=== PATIENT | female | born 1960 | race Caucasian/White ===

== ENCOUNTER → 2019-11-19 10:11 | Outpatient (BNVA) | payer MEDICARE, MEDICAID, SELFPAY | PROVIDERS: Family Provider Family Medicine; PCP Family Medicine; Visit Provider Specialist | DX: G40.219 Localization-related (focal) (partial) symptomatic epilepsy and epileptic syndromes with complex partial seizures, intractable, without status epilepticus (principal); G43.019 Migraine without aura, intractable, without status migrainosus | CPT/HCPCS: 95970; 99214 ==

== ENCOUNTER → 2021-08-03 12:53 | Outpatient (BNVA) | payer MEDICARE, MEDICAID, SELFPAY | PROVIDERS: Family Provider Family Medicine; PCP Family Medicine; Visit Provider Specialist | DX: G40.219 Localization-related (focal) (partial) symptomatic epilepsy and epileptic syndromes with complex partial seizures, intractable, without status epilepticus (principal); G43.711 Chronic migraine without aura, intractable, with status migrainosus; Z96.82 Presence of neurostimulator | CPT/HCPCS: 99214; 99215 ==

== ENCOUNTER → 2021-09-29 09:05 | Outpatient (BNVA) | payer MEDICARE, MEDICAID, SELFPAY | PROVIDERS: Family Provider Family Medicine; PCP Internal Medicine Infectious Disease; Visit Provider Thoracic Surgery (Cardiothoracic Vascular Surgery) | DX: Z96.89 Presence of other specified functional implants (principal) | CPT/HCPCS: 87635 ==

== ENCOUNTER 2021-10-05 07:01 | Day surgery (SDC) | payer MEDICARE, MEDICAID, SELFPAY ==
[2021-09-29 11:39] VITALS: BMI 36.6
[2021-09-29 12:37] LABS: Basophils % 0.6 %; Eosinophils # 0.2 10^3/uL (0.0-0.8); Eosinophils % 3.1 %; Hematocrit 43.3 % (37.0-47.0); Hemoglobin 13.4 g/dL (11.5-15.3); Lymphocytes # 1.5 10^3/uL (0.8-4.8); Lymphocytes % 22.8 %; Mean Corpuscular HGB Conc 30.9 g/dL (30.0-36.0); Mean Corpuscular Hemoglobin 30.2 pg (28.0-34.0); Mean Corpuscular Volume 97.5 fl (81-99); Mean Platelet Volume 11.5 fL (7.4-10.4); Monocytes # 0.3 10^3/uL (0.2-0.9); Monocytes % 4.7 %; Neutrophils # 4.48 10^3/uL (1.8-7.7); Neutrophils % 68.5 %; Nucleated Red Blood Cells % 0 %; Platelet Count 285 10^3/cmm (130-400); Red Blood Count 4.44 10^6/uL (4.1-5.3); Red Cell Distribution Width 12.7 % (12.1-15.1); White Blood Count 6.5 10^3/uL (4.0-10.0)
[2021-09-29 12:53] LABS: Urine Appearance SL Hazy (CLEAR); Urine Color Yellow (Yellow); pH Urine 5 (5-7)
[2021-09-29 12:54] LABS: Add Urine Culture? Yes; Add Urine Microscopic? YES; Bacteria Urine 2+ /hpf; Bilirubin Urine Neg (Negative); Blood Urine 2+ (Negative); Glucose Urine UA Norm (Normal); Ketones Urine Negative (Negative); Leukocyte Esterase Urine Negative (Negative); Nitrate Urine Negative (Negative); Protein Urine Neg (Negative); Squamous Epithelial Cell Urine 0-4 /hpf (0-5); Urobilinogen Urine Norm (Negative); WBC Urine 0-4 /hpf (0-5)
[2021-09-29 12:58] LABS: Anion Gap 14.6 (5-19); Blood Urea Nitrogen 13 mg/dL (6-20); Calcium 7.6 mg/dL (8.5-10.5); Carbon Dioxide 22 mmol/L (22-29); Chloride 107 mmol/L (98-107); Glomerular Filtration Rate 85.9 mL/min (90-130); Glucose 89 mg/dL (65-115); Osmolality Calculated 290 mOsm/kg (285-295); Potassium 3.6 mmol/L (3.5-5.1); Sodium 140 mmol/L (136-145)
--- NOTE | 2021-09-29 16:34 | P.ANESASSM_ITS ---
Pre-Anesthetic Assessment Pre-Anesthetic Assessment: Height/Weight: Height 1.57 m Weight 90.718 kg Preop Diagnosis: Vagal nerve stimulator Generator generator end of service Proposed Procedure: Operation Date: 10/05/21 08:40 Proposed Procedures p VNS Generator Exchange(Not Applicable) - Jarrod Pascual MD Was Beta Ru taken within 24 hours: N/A Was Clonidine taken within 24 hours: N/A Social: Social History: No alcohol and No tobacco Exam: Pre-Anes Outpt Exam: alert, oriented x 3, clear to auscultation bilaterally and regular rate & rhythm Airway: Submandibular: WNL Cervical ROM: WNL MP: 2 Dentition: False History/ROS: No significant complaints Pulmonary: Pulmonary: None reported CV/HEM: CV/HEM: None reported : : None reported Hepatic: Hepatic: None reported GI: GI: GERD Metabolic: Metabolic: None reported Musc/skel: Musc/skel: None reported Neuropsych: Neuropsych: Anxiety and Seizure (VNS for epilepsy ) Comments: Migraine Anesthetic Plan: ASA status: 3 (60 year old with intractable epilepsy ) Anesthesia: General and MAC Other: We discussed risk and benefits of both MAC and general anesthesia. We discussed that further planning will coordinated with surgeon on day of surgery. We discussed the spectrum of MAC anesthesia and that it is possible that with MAC the patient would recall intraoperative stimuli including pain/discomfort. Patient consents to both MAC and general pending day of surgery discussion. Risk of > 500 ml blood loss (7ml/kg in children): No PFSH Anesthesia PFSH: Family History Other CAD (coronary artery disease) Diabetes Hypertension Stroke Denies family history of Cancer Social History Alcohol intake: former History of recent travel: No Data Anesthesia CBC & Chem 7: 09/29/21 12:00 09/29/21 12:00 Other Labs: Laboratory Results - last 48 hr 09/29/21 09/29/21 09/29/21 12:00 12:00 12:00 WBC 6.5 RBC 4.44 Hgb 13.4 Hct 43.3 MCV 97.5 MCH 30.2 MCHC 30.9 RDW 12.7 Plt Count 285 MPV 11.5 H Neut % (Auto) 68.5 Lymph % (Auto) 22.8 [place] % (Auto) 4.7 Eos % (Auto) 3.1 Baso % (Auto) 0.6 Neut # (Auto) 4.48 Lymph # (Auto) 1.5 [place] # (Auto) 0.3 Eos # (Auto) 0.2 Baso # (Auto) 0.0 Nucleated RBC % (auto) 0 Nucleated RBCs # 0.0 Sodium 140 Potassium 3.6 Chloride 107 Carbon Dioxide 22 Anion Gap 14.6 BUN 13 Creatinine 0.7 GFR Calculation 85.9 L Glucose 89 Calculated Osmolality 290 Calcium 7.6 L Urine Color Yellow Urine Appearance Sl hazy Urine pH 5 Ur Specific [place] 1.010 Urine Protein Neg Urine Glucose (UA) Norm Urine Ketones Negative Urine Blood 2+ H Urine Nitrate Negative Urine Bilirubin Neg Urine Urobilinogen Norm Ur Leukocyte Esterase Negative Urine RBC 5-10 H Urine WBC 0-4 H Ur Squamous Epith Cells 0-4 H Amorphous Sediment Not Reportable Urine Bacteria 2+ H Cardiac Studies: No Data to Display
[2021-10-05] VITALS (13 sets, daily range): BP systolic 99–129; BP diastolic 54–78; PULSE 60–70; RESP 16–26; TEMP 36.2–36.8; O2SAT 90–100
--- NOTE | 2021-10-05 07:49 | P.ANESUD_ITS ---
Pre-Anesthetic Update Pre-Anesthetic Assessment: Date of Surgery/Procedure: 10/05/21 Preop Brandie gnosis: Vagal nerve stimulator Generator generator end of service Proposed Procedure: Operation Date: 10/05/21 08:40 Proposed Procedures p VNS Generator Exchange(Not Applicable) - Jarrod Pascual MD Any changes to Pre-Anesthetic Assessment?: No Last Intake: 10/04/21 Exam: Pre-Anes Outpt Exam: alert, oriented x 3, clear to auscultation bilaterally and regular rate & rhythm Cardiac Studies: No Data to Display
[2021-10-05] MEDS: vancomycin 1,500 MG/300 ML PIGGYBACK 167 MG IV (08:00)
[2021-10-05] MEDS: sodium chloride 0.9% 1,000 ML 30 ML IV (08:00)
--- NOTE | 2021-10-05 08:04 | PM.HP ---
Providers/Chief Complaint Primary Care Provider: Yogi Dye History of Present Illness Samaria Salazar is a 60 year old female whom was referred to our service for VNS generator change with the current generator near end of service. I saw her in consultation in my clinic on September 03. She has been under close treatments by Dr. Gottlieb from our neurology service, who also assist with her care for migraine headaches, including Botox treatments. Review of Systems Const: Reports: change in appetite, change in weight and fatigue; Denies: fever(s), chills or night sweats Eyes: Reports: change in vision; Denies: blurry vision ENMT: Denies: odynophagia or hoarseness Card: Reports: chest pain; Denies: palpitations, irregular heart rhythm or edema Resp: Reports: non-productive cough; Denies: dyspnea or productive cough GI: Denies: abdominal pain, nausea, vomiting, dysphagia, heartburn or change in bowel habits : Denies: dysuria, urinary frequency, urinary urgency or urinary hesitancy Musc: Denies: extremity pain or extremity swelling Skin/Breast: Denies: rash Neuro: Reports: headache(s) and seizure-like activity; Denies: numbness in extremities, weakness in extremities or sensory changes Psych: Reports: anxiety, depression, change in appetite and irritability Endo: Denies: polyuria, polydipsia or cold intolerance Richard/Lymph: Denies: easy bruising, easy bleeding, petechiae or enlarged lymph nodes Medications/Allergies Home Medications Medication Instructions Recorded Confirmed Last Taken Type pantoprazole 40 mg tablet,delayed 40 mg PO DAILY 11/19/19 10/05/21 10/04/21 History release potassium chloride 20 mEq 20 meq PO DAILY 11/19/19 10/05/21 10/04/21 History tablet,extended release topiramate 200 mg capsule,extended 200 mg PO BID cap 11/19/19 10/05/21 10/04/21 History release 24 hr valbenazine 40 mg capsule 80 mg PO DAILY cap 11/19/19 10/05/21 10/04/21 History vortioxetine 20 mg tablet 20 mg PO DAILY 11/19/19 10/05/21 10/05/21 History rizatriptan 10 mg tablet See Rx Instructions PO .COMPLEX #9 11/21/19 09/29/21 Unknown Rx tab amitriptyline 75 mg tablet 75 mg PO DAILY 08/03/21 10/05/21 10/04/21 History fluconazole 150 mg tablet 150 mg PO DAILY 08/03/21 10/05/21 10/05/21 History furosemide 20 mg tablet 20 mg PO BEDTIME tab 08/03/21 10/05/21 10/04/21 History gabapentin 100 mg capsule 300 mg PO BID cap 08/03/21 10/05/21 10/04/21 History levothyroxine 50 mcg tablet 50 mcg PO DAILY 08/03/21 10/05/21 10/05/21 History montelukast 10 mg tablet 10 mg PO DAILY 08/03/21 10/05/21 10/04/21 History rivaroxaban 10 mg tablet 20 mg PO DAILY tab 08/03/21 10/05/21 10/02/21 History Toviaz 8 mg PO DAILY 09/29/21 10/05/21 10/04/21 History celecoxib 200 mg PO DAILY 09/29/21 10/05/21 10/04/21 History Allergies Allergy/AdvReac Type Severity Reaction Status Date / Time acetaminophen [From Percocet] Allergy ADR-Itching Verified 09/29/21 11:23 hydrocodone Allergy unknnown Verified 09/29/21 11:23 latex Allergy Unknown Verified 09/29/21 11:23 levofloxacin Allergy unknown Verified 09/29/21 11:23 lithium Allergy unknown Verified 09/29/21 11:23 oxycodone [From Percocet] Allergy ADR-Itching Verified 09/29/21 11:23 polyethylene glycol 3350 Allergy unknown Verified 09/29/21 11:23 [From Miralax] propoxyphene Allergy unknown Verified 09/29/21 11:23 [From Darvocet-N] Sulfa (Sulfonamide Allergy unknown Verified 09/29/21 11:23 Antibiotics) PFSH Acute PFSH: Family History Other CAD (coronary artery disease) Diabetes Hypertension Stroke Denies family history of Cancer Social History Alcohol intake: former History of recent travel: No Vitals/I&O/Wt Last Vital Signs Temp 97.1 F L 10/05/21 07:44 Pulse 69 10/05/21 07:44 Resp 18 10/05/21 07:44 BP 129/73 10/05/21 07:44 Pulse Ox 100 10/05/21 07:44 Physical Exam HENMT: COMMON NORMALS: normocephalic, atraumatic, hearing grossly normal bilaterally, external ears normal and Normal external nose present HEAD & SCALP: no Temporal artery tenderness present Neck/C-Spine: COMMON NORMALS: full ROM, no lymphadenopathy, supple and No carotid bruits GENERAL: Yes normal visual inspection and Yes trachea midline Chest: COMMONS NORMALS: normal palpation of entire chest wall OTHER: VNS generator easily palpable in the left subclavicular region. She has a right chest wall Port-A-Cath in position. Resp: COMMON NORMALS: normal respiratory effort, No retractions, No use of accessory muscles, clear to auscultation bilaterally and percussion normal EFFORT & INSPECTION: Yes able to speak in complete sentences and Yes symmetric chest movement Cardio: COMMON NORMALS: regular rate, regular rhythm and S1 normal heart sound present GI: COMMON NORMALS: Normal to inspection, nondistended, normoactive bowel sounds present Extremity: COMMON NORMALS: normal to inspection and no clubbing, cyanosis or edema Data : 09/29/21 12:00 09/29/21 12:00 A&P Assessment and plan (1) Status post VNS (vagus nerve stimulator) placement: VNS generator near end of service Rationale for generator replacement discussed with Spencer Salazar. Details of risk the procedure reviewed. She is in agreement to proceed. Status: Acute Attestations Medical Necessity Statement*: VNS generator near end of service Time Spent in Patient Care: 16 - 35 minutes Coding Level of Care Code Acute Mammography Technician for Chg Fwd Diagnoses Status post VNS (vagus nerve stimulator) placement Z96.89
[2021-10-05] MEDS: vancomycin 1,000 MG SDV 1000 MG IRRIGATION (08:31)
[2021-10-05] MEDS: lidocaine 1% INJ 20 mL SUBCUT (08:31)
--- NOTE | 2021-10-05 09:25 | PM.OP ---
Operative Report Date of procedure: October 05, 2021 Pre-op Diagnosis: Vagal nerve stimulator Generator generator end of service Post-op diagnosis: same Procedure Done: Vagal nerve stimulator generator exchange Implants: Vagal nerve stimulator generator Specimens removed/disposition: Old VNS generator delivered to promotions representative Pathology: none sent Surgeon: Jarrod Pascual Anesthesia: MAC and Local Complications: None Condition: stable Disposition: same day Brief History: Ms. Salazar is a 60-year-old female with seizure disorder and vagal nerve stimulator with generator now at end of service. Replacement has been requested by Dr. Gottlieb. Details of risk the procedure were carefully and frankly discussed. Appropriate consents have been reviewed and signed. Procedure: Patient was appropriately positioned and sterilely prepped and draped. IV consicious sedation was given with anesthesia monitoring. 1% lidocaine was infiltrated through the prior insertion incision site. # 15 scalpel blade was used to incise the skin down to subcutaneous layer. Subsequently, using sharp and blunt dissection the partially calcified pseudocapsule to the old generator was reached and opened with a scalpel blade. This area was then enhanced utilizing Metzenbaum scissors with care taken not to injure the pacing leads. Once the pocket was adequate opened, hemostats were utilized to deliver the old generator. Set screw were released and the lead was removed and inserted properly into the new generator with set screw then secured. The old generator was removed from the field. The incision was irrigated with antibiotic solution. Hemostasis was confirmed. The new generator was placed back into the old subcutaneous pocket. The wound was then closed in 2 layers of 3-0 Vicryl suture. Skin was closed in a subcuticular manner with 4-0 undyed Vicryl suture. A 2 layer pressure dressing was then applied. The entire system was interrogated and appropriate parameters obtained. Ms. Salazar tolerated procedure well and was taken to the recovery room in stable condition. I did funeral planning counselor with the family at the completion of the procedure. [employer] generator: Model #1000 Serial number: [id number] Frequency: 20 Hz Pulse width: 250 ?s Duty: 25% On: 30 seconds Off: 1.8 minutes Lead impedance 2052 ohms Auto stimulation threshold 30%
--- NOTE | 2021-10-05 15:37 | ANE.PACU2 ---
Inpatient post-anesthesia follow up: Airway intact: Yes Vital signs: Temperature 98.2 F Pulse Rate 64 Respiratory Rate 18 Blood Pressure 124/78 Pulse Oximetry 93 Oxygen Delivery Me thod Room Air Oxygen Flow Rate 2 Fraction of Inspir ed Oxygen Hydration adequate: Yes Nausea and vomiting: No Pain level: 1 Mental status: Baseline
== END 2021-10-05 12:00 | disposition home or self-care (01) ==
PROVIDERS: Family Provider Family Medicine; PCP Internal Medicine Infectious Disease; Visit Provider Thoracic Surgery (Cardiothoracic Vascular Surgery)
PROC: (CPT 61885; principal; 2021-10-05 08:30)
DX: Z45.42 Encounter for adjustment and management of neurostimulator (principal); I25.10 Atherosclerotic heart disease of native coronary artery without angina pectoris; E11.9 Type 2 diabetes mellitus without complications; I10 Essential (primary) hypertension; Z86.73 Personal history of transient ischemic attack (TIA), and cerebral infarction without residual deficits; K21.9 Gastro-esophageal reflux disease without esophagitis
CPT/HCPCS: 64569; 36415; 80048; 81001; 85025; 87086; 87186; C1767; J2370; J2704; J3010; J3370; J7030

== ENCOUNTER → 2021-10-20 13:04 | Outpatient (BNVA) | payer MEDICARE, MEDICAID, SELFPAY | PROVIDERS: Family Provider Family Medicine; PCP Internal Medicine Infectious Disease; Visit Provider Specialist | DX: G40.219 Localization-related (focal) (partial) symptomatic epilepsy and epileptic syndromes with complex partial seizures, intractable, without status epilepticus (principal); G43.711 Chronic migraine without aura, intractable, with status migrainosus; Z96.82 Presence of neurostimulator | CPT/HCPCS: 95970; 99213; 99214 ==

== ENCOUNTER → 2022-01-26 09:24 | Outpatient (BNVA) | payer MEDICARE, MEDICAID, SELFPAY | PROVIDERS: Family Provider Family Medicine; PCP Internal Medicine Infectious Disease; Visit Provider Specialist | DX: G40.219 Localization-related (focal) (partial) symptomatic epilepsy and epileptic syndromes with complex partial seizures, intractable, without status epilepticus (principal); G43.711 Chronic migraine without aura, intractable, with status migrainosus; R26.89 Other abnormalities of gait and mobility; Z96.82 Presence of neurostimulator | CPT/HCPCS: 95970; 99214 ==

== ENCOUNTER → 2022-12-08 10:39 | Outpatient (BNVA) | payer MEDICARE, MEDICAID, SELFPAY | PROVIDERS: Family Provider Family Medicine; PCP Internal Medicine Infectious Disease; Visit Provider Specialist | DX: G43.711 Chronic migraine without aura, intractable, with status migrainosus (principal); G40.219 Localization-related (focal) (partial) symptomatic epilepsy and epileptic syndromes with complex partial seizures, intractable, without status epilepticus; Z96.82 Presence of neurostimulator; R26.89 Other abnormalities of gait and mobility; F32.A Depression, unspecified; F60.3 Borderline personality disorder | CPT/HCPCS: 64615; 99214; J0585 ==

== ENCOUNTER → 2023-03-09 10:53 | Outpatient (BNVA) | payer MEDICARE, MEDICAID, SELFPAY | PROVIDERS: Family Provider Family Medicine; PCP Internal Medicine Infectious Disease; Visit Provider Specialist | DX: G43.711 Chronic migraine without aura, intractable, with status migrainosus (principal); R26.9 Unspecified abnormalities of gait and mobility; R56.9 Unspecified convulsions; Z96.82 Presence of neurostimulator | CPT/HCPCS: 64615; 99213; J0585 ==

== ENCOUNTER → 2023-06-08 10:57 | Outpatient (BNVA) | payer MEDICARE, OTHER, SELFPAY | PROVIDERS: Family Provider Family Medicine; PCP Internal Medicine Infectious Disease; Visit Provider Specialist | DX: G43.711 Chronic migraine without aura, intractable, with status migrainosus (principal); G40.219 Localization-related (focal) (partial) symptomatic epilepsy and epileptic syndromes with complex partial seizures, intractable, without status epilepticus; R26.9 Unspecified abnormalities of gait and mobility | CPT/HCPCS: 64615; 95970; 99213 ==

== ENCOUNTER → 2023-08-31 10:52 | Outpatient (BNVA) | payer MEDICARE, MEDICAID, SELFPAY | PROVIDERS: Family Provider Family Medicine; PCP Internal Medicine Infectious Disease; Visit Provider Specialist | DX: G43.711 Chronic migraine without aura, intractable, with status migrainosus (principal); G24.3 Spasmodic torticollis; Z96.89 Presence of other specified functional implants | CPT/HCPCS: 64615; 64643; 99213 ==

== ENCOUNTER → 2023-12-28 11:07 | Outpatient (BNVA) | payer MEDICARE, MEDICAID, SELFPAY | PROVIDERS: Family Provider Family Medicine; PCP Internal Medicine Infectious Disease; Visit Provider Specialist | DX: G43.711 Chronic migraine without aura, intractable, with status migrainosus (principal); Z96.89 Presence of other specified functional implants | CPT/HCPCS: 64615; 99212 ==

== ENCOUNTER → 2024-04-04 10:32 | Outpatient (BNVA) | payer MEDICARE, MEDICAID, SELFPAY | PROVIDERS: Family Provider Family Medicine; PCP Internal Medicine Infectious Disease; Visit Provider Specialist | DX: G43.711 Chronic migraine without aura, intractable, with status migrainosus (principal); Z96.89 Presence of other specified functional implants; G24.3 Spasmodic torticollis; R26.9 Unspecified abnormalities of gait and mobility; R03.0 Elevated blood-pressure reading, without diagnosis of hypertension | CPT/HCPCS: 64615 ==

== ENCOUNTER → 2024-06-27 10:48 | Outpatient (BNVA) | payer MEDICARE, MEDICAID, SELFPAY | PROVIDERS: Family Provider Family Medicine; PCP Internal Medicine Infectious Disease; Visit Provider Specialist | DX: G43.711 Chronic migraine without aura, intractable, with status migrainosus (principal); Z96.89 Presence of other specified functional implants; G24.3 Spasmodic torticollis; R26.9 Unspecified abnormalities of gait and mobility; R03.0 Elevated blood-pressure reading, without diagnosis of hypertension | CPT/HCPCS: 64615 ==

== ENCOUNTER → 2024-10-11 09:58 | Outpatient (BNVA) | payer MEDICARE, MEDICAID, SELFPAY | PROVIDERS: Family Provider Family Medicine; PCP Internal Medicine Infectious Disease; Visit Provider Specialist | DX: G43.711 Chronic migraine without aura, intractable, with status migrainosus (principal) | CPT/HCPCS: 64615 ==

== ENCOUNTER → 2024-10-25 14:33 | Outpatient (BNVA) | payer MEDICARE, MEDICAID, SELFPAY | PROVIDERS: Family Provider Family Medicine; PCP Internal Medicine Infectious Disease; Visit Provider Specialist | DX: G24.3 Spasmodic torticollis (principal) | CPT/HCPCS: 64616; J0585 ==

== ENCOUNTER → 2025-02-04 10:16 | Outpatient (BNVA) | payer MEDICARE, MEDICAID, SELFPAY | PROVIDERS: Family Provider Family Medicine; PCP Internal Medicine Infectious Disease; Visit Provider Internal Medicine | DX: E16.1 Other hypoglycemia (principal); G43.711 Chronic migraine without aura, intractable, with status migrainosus; Z96.89 Presence of other specified functional implants; G24.3 Spasmodic torticollis; R26.9 Unspecified abnormalities of gait and mobility; R03.0 Elevated blood-pressure reading, without diagnosis of hypertension; L65.9 Nonscarring hair loss, unspecified; R63.4 Abnormal weight loss; Z98.84 Bariatric surgery status | CPT/HCPCS: 99204 ==

== ENCOUNTER → 2025-02-14 09:13 | Outpatient (BNVA) | payer MEDICARE, MEDICAID, SELFPAY | PROVIDERS: Family Provider Family Medicine; PCP Internal Medicine Infectious Disease; Visit Provider Specialist | DX: Z96.89 Presence of other specified functional implants (principal); G43.711 Chronic migraine without aura, intractable, with status migrainosus; G24.3 Spasmodic torticollis; R26.9 Unspecified abnormalities of gait and mobility; R03.0 Elevated blood-pressure reading, without diagnosis of hypertension; R13.12 Dysphagia, oropharyngeal phase | CPT/HCPCS: 95970; 99214 ==

== ENCOUNTER → 2025-04-08 10:24 | Outpatient (BNVA) | payer MEDICARE, SELFPAY | PROVIDERS: Family Provider Family Medicine; PCP Internal Medicine Infectious Disease; Visit Provider Internal Medicine | DX: E16.1 Other hypoglycemia (principal); G43.711 Chronic migraine without aura, intractable, with status migrainosus; G24.3 Spasmodic torticollis; R03.0 Elevated blood-pressure reading, without diagnosis of hypertension; Z98.84 Bariatric surgery status; R63.4 Abnormal weight loss | CPT/HCPCS: 99214 ==

== ENCOUNTER → 2025-08-13 11:33 | Outpatient (BNVA) | payer MEDICARE, MEDICAID, SELFPAY | PROVIDERS: Family Provider Family Medicine; PCP Internal Medicine Infectious Disease; Visit Provider Specialist | DX: G40.219 Localization-related (focal) (partial) symptomatic epilepsy and epileptic syndromes with complex partial seizures, intractable, without status epilepticus (principal); Z96.89 Presence of other specified functional implants; G43.711 Chronic migraine without aura, intractable, with status migrainosus; G24.3 Spasmodic torticollis; R26.9 Unspecified abnormalities of gait and mobility; R03.0 Elevated blood-pressure reading, without diagnosis of hypertension; R13.12 Dysphagia, oropharyngeal phase | CPT/HCPCS: 95971; 99213 ==